=== PATIENT | female | born 1990 | race Caucasian/White ===

== ENCOUNTER 2018-01-29 13:00 | Emergency (ER) | payer SELFPAY ==
[~2018-01-29] VITALS: Ht 165.1 cm; Wt 54.4 kg
[2018-01-29 13:05] VITALS: BP 108/86; Ht 165.1 cm; Wt 54.4 kg
== END 2018-01-29 15:23 | disposition home or self-care (01) ==
LOC: ED 13:00
DX: S93.401A Sprain of unspecified ligament of right ankle, initial encounter (principal); J45.909 Unspecified asthma, uncomplicated; X50.1XXA Overexertion from prolonged static or awkward postures, initial encounter; Y93.89 Activity, other specified; Y92.89 Other specified places as the place of occurrence of the external cause; Y99.8 Other external cause status
CPT/HCPCS: Q0092

== ENCOUNTER 2018-09-26 19:16 | Emergency (ER) | payer MEDICAID, BC ==
[~2018-09-26] VITALS: Ht 165.1 cm; Wt 53.7 kg
[2018-09-26 21:02] LABS: BASOPHIL % 0.7 % (0-2); PLATELET COUNT 223 x10^3mcL (130-400); RED CELL DISTRIBUTION WIDTH 13.8 % (11.5-14.5)
[2018-09-26 21:16] LABS: CALCIUM 8.9 mg/dL (8.5-10.1); CARBON DIOXIDE 25.3 mmol/L (21-32); CHLORIDE SERUM 104 mmol/L (98-107); CREATININE SERUM 0.9 mg/dL (0.6-1.0); GFR1 > 60 mL/min; GLUCOSE SERUM 84 mg/dL (74-106); SODIUM SERUM 142 mmol/L (136-145)
[2018-09-26 21:21] LABS: ALBUMIN 3.9 g/dL (3.4-5.0); ALKALINE PHOSPHATASE 85 U/L (46-116); ALT/SGPT 26 U/L (14-59); AST/SGOT 15 U/L (15-37); BILIRUBIN TOTAL 0.43 mg/dL (0.20-1.00); TOTAL PROTEIN, SERUM 8.1 g/dL (6.4-8.2)
[2018-09-26 21:28] LABS: AMPHETAMINE QUAL UR POSITIVE (See below)
[2018-09-26 22:04] VITALS: BP 132/86
== END 2018-09-26 22:06 | disposition home or self-care (01) ==
LOC: ED 19:16
PROVIDERS: Emergency Medicine
DX: F15.10 Other stimulant abuse, uncomplicated (principal); R55 Syncope and collapse
CPT/HCPCS: 36415; J8597